=== PATIENT | male | born 1960 | race Caucasian/White ===

== ENCOUNTER 2024-11-18 07:17 | Outpatient (CLI) | payer OTHER ==
[2024-11-18 07:53] LABS: BASO % 1.3 % (0.1-1.2); EOS # 0.13 (0.04-0.54); EOS % 2.3 % (0.7-7.0); LYMPH # 1.72 (1.18-3.74); LYMPH % 30.9 % (19.3-53.1); MEAN PLATELET VOLUME 9.90 fl (9.4-12.4); MONO # 0.58 (0.24-0.82); MONO % 10.4 % (4.7-12.5); NEUT # 3.04 (1.56-6.13); NEUT % 54.7 % (34.0-71.1); RED CELL DISTRIBUTION WIDTH 12.2 % (11.6-14.4)
[2024-11-18 08:20] LABS: URINE APPEARANCE Clear; URINE BILIRRUBIN Negative (NEGATIVE); URINE BLOOD Negative; URINE COLOR Yellow; URINE KETONE Trace (NEGATIVE); URINE LEUKOCYTE Negative; URINE NITRATE Negative; URINE PROTEIN Negative (NEGATIVE); URINE UROBILINOGEN 0.2 E.U./dl
[2024-11-18 08:25] LABS: URINE BACTERIA 14.3 uL (0.0-1933); URINE EPITHELIAL CELLS 2.9 uL (0.0-38.8); URINE RBC 6.7 uL (0.0-20.8); URINE WBC 2.6 uL (0.0-23.2)
[2024-11-18 08:37] LABS: URINE CAST 0.00 uL (0.0-1.40); URINE GLUCOSE >=1000 MG/DL (NEGATIVE)
[2024-11-18 08:54] LABS: ALT/SGPT 34.0 U/L (12-78); AST/SGOT 22.0 U/L (15-37); BILIRUBIN TOTAL 0.39 mg/dL (0.3-1.2); BUN CREA RATIO 18.0 (7.0-25.0); CHOL HDL RATIO 2.8 (0-5.0); CREATININE SERUM 1.05 mg/dL (0.70-1.30); GFR 71.57; GLOBULINA 3.3 G/DL (2.4-3.5); GLUCOSE FASTING 169.0 mg/dL (65-100); HDL 58.0 mg/dl (40-60); LDL 70.0 mg/dl (0-130); OSMOLALITY SERUM 291.0 MOSM/KG (275-295); VLDL 32.0 (0-39)
== END 2024-11-18 07:21 | disposition home or self-care (01) ==
LOC: LAB 07:17
DX: E11.65 Type 2 diabetes mellitus with hyperglycemia (principal)

== ENCOUNTER → 2025-02-12 07:24 | Outpatient (CLI) | payer OTHER ==
[2025-02-12 08:34] LABS: BASO % 0.8 % (0.1-1.2); EOS # 0.11 (0.04-0.54); EOS % 1.8 % (0.7-7.0); LYMPH # 1.26 (1.18-3.74); LYMPH % 20.6 % (19.3-53.1); MEAN PLATELET VOLUME 9.70 fl (9.4-12.4); MONO # 0.65 (0.24-0.82); MONO % 10.6 % (4.7-12.5); NEUT # 4.03 (1.56-6.13); NEUT % 65.9 % (34.0-71.1); RED CELL DISTRIBUTION WIDTH 12.8 % (11.6-14.4)
[2025-02-12 08:37] LABS: URINE APPEARANCE Clear; URINE BILIRRUBIN Negative (NEGATIVE); URINE BLOOD Negative; URINE COLOR Yellow; URINE KETONE Negative (NEGATIVE); URINE LEUKOCYTE Negative; URINE NITRATE Negative; URINE PROTEIN Negative (NEGATIVE); URINE UROBILINOGEN 0.2 E.U./dl
[2025-02-12 08:41] LABS: URINE BACTERIA 4.7 uL (0.0-1933)
[2025-02-12 08:47] LABS: URINE CAST 0.00 uL (0.0-1.40); URINE EPITHELIAL CELLS 0.9 uL (0.0-38.8); URINE GLUCOSE >=1000 MG/DL (NEGATIVE); URINE RBC 1.1 uL (0.0-20.8); URINE WBC 1.6 uL (0.0-23.2)
[2025-02-12 08:51] LABS: CREATININE URINE RANDOM 59.1 MG/DL (30-125)
[2025-02-12 09:42] LABS: BUN CREA RATIO 23.0 (7.0-25.0); CHOL HDL RATIO 2.7 (0-5.0); CREATININE SERUM 1.21 mg/dL (0.70-1.30); FE 48.0 ug/dl (65-175); GFR 60.57; GLUCOSE FASTING 70.0 mg/dL (65-100); HDL 62.0 mg/dl (40-60); LDL 78.0 mg/dl (0-130); OSMOLALITY SERUM 287.0 MOSM/KG (275-295); VLDL 28.0 (0-39)
[2025-02-12 10:16] LABS: FOLIC ACID > 20.00 ng/ml (4.78-20)
== END | disposition home or self-care (01) ==
LOC: LAB 07:24
DX: E78.2 Mixed hyperlipidemia (principal); N18.1 Chronic kidney disease, stage 1; I10 Essential (primary) hypertension; E11.22 Type 2 diabetes mellitus with diabetic chronic kidney disease; I12.9 Hypertensive chronic kidney disease with stage 1 through stage 4 chronic kidney disease, or unspecified chronic kidney disease; D64.9 Anemia, unspecified; Z12.11 Encounter for screening for malignant neoplasm of colon